=== PATIENT | male | born 1950 | race Caucasian/White ===

== ENCOUNTER 2016-04-10 13:49 | Observation (INO) | payer OTHER ==
--- NOTE | ~2016-04-10 | DS ---
Discharge Summary [facility] [address] [place]. [address] NAME: MERY REED : 52 STATUS : DIS Georgi PAT#: [id number] AGE: 66 ADM/REG DATE : 04/10/16 MR#: [id number] REPORT SERV DATE: 04/12/16 DICTATED BY: TOÑO YU DATE: 04/11/16 REPORT STATUS : Draft TRANSCRIBED BY: MODL DATE: 04/11/16 ADMISSION DATE: 04/10/2016 DISCHARGE DATE: 04/11/2016 HISTORY OF PRESENT ILLNESS: Mr. Reed is a 66-year-old male with a history of hypertension, status post anterior colonic resection for persistent diverticulosis with phlegmon, who presented to the hospital with a complaint of lightheadedness and dizziness. For further details, please refer to H and P dictated by Dr. Yu on 04/10/2016. HOSPITAL COURSE: Upon presentation to the emergency room, the patient was diagnosed with volume depletion, and admitted under Hospitalist Service for observation overnight. The patient remained hemodynamically stable with complete resolution of his presenting symptom. The patient is hemodynamically stable. The patient has been counseled to intake adequate amount of fluid daily approximately 1.5 L to avoid volume depletion. Given his hemodynamic stability with resolution of his symptoms, the patient will be discharged home today. Plan has been discussed with the patient, who voices understanding and is agreeable with that plan. DISCHARGE MEDICATIONS: The patient's home medications were all continued with the exception that hydrochlorothiazide was added for high blood pressure. His home meds include aspirin 81 mg p.o. daily, nicotine patch 14 mg patch one patch topical daily, tamsulosin 0.4 mg p.o. at bedtime, Flagyl 500 mg p.o. q.8 hours, hydrochlorothiazide 25 mg p.o. daily. IMAGING: The patient the patient had a brain CT scan and also CT of the abdomen and pelvis, all without contrast. No significant findings were noted on these exams. DISCHARGE EXAM: GENERAL: The patient is sitting in bed, in no acute distress. Appears stated age. HEENT: Normocephalic, atraumatic. Extraocular motors intact. Oral mucosa moist. Pupils round and reactive to light and accommodation. Extraocular motors intact. NECK: Trachea midline and symmetric. No JVD noted. No thyromegaly present. No masses palpated. CHEST: Nontender to palpation. No scars noted. CARDIOVASCULAR: Regular rate and rhythm. S1, S2. No murmurs, rubs, or gallops. LUNGS: Clear to auscultation bilaterally. No wheezes, rhonchi, or rales. ABDOMEN: Positive bowel sounds. Nontender. Nondistended. Colostomy site noted draining liquid fecal matter. Tissue appears healthy. Area looks clean. EXTREMITIES: No cyanosis, clubbing, or edema. NEURO: Alert and oriented x3. No focal deficits appreciated. DISPOSITION: The patient will be discharged home to follow up with primary care physician in one to two weeks. ACTIVITY: As tolerated. DIET: Regular low-salt diet. Discharge Summary [address] [address] NAME: MERY REED : 52 STATUS : DIS Georgi PAT#: [id number] AGE: 66 ADM/REG DATE : 04/10/16 MR#: [id number] REPORT SERV DATE: 04/12/16 DICTATED BY: TOÑO YU DATE: 04/11/16 REPORT STATUS : Draft TRANSCRIBED BY: NORA DATE: 04/11/16 Greater than 30 minutes were spent reviewing chart, coordinating care, dictating note, writing prescription, and medication reconciliation. RYDER/NORA Toño Yu MD / [id number] CC: MD Aaron Estevez D.O.
--- NOTE | ~2016-04-10 | CN ---
Consultation Report [facility] [address] [place]. [address] NAME: MERY REED : 52 STATUS : ADM Georgi PAT#: [id number] AGE: 66 ADM/REG DATE : 04/10/16 MR#: [id number] REPORT SERV DATE: 04/11/16 DICTATED BY: CANDY BURNHAM DATE: 04/11/16 REPORT STATUS : Draft TRANSCRIBED BY: MODJerald DATE: 04/11/16 CONSULTATION. DATE OF CONSULTATION: 04/11/2016 REASON FOR CONSULTATION: New ileostomy and dehydration. HISTORY OF PRESENTING ILLNESS: Mr. Reed is a 66-year-old gentleman, who underwent a low anterior resection with ileostomy on 04/03/2016, for diverticular disease. He presented on Friday, today is with dehydration and dizziness. He was sent for 2 L IV infusion and labs were checked at that time, all electrolytes were within normal range. He was then sent home and by Friday which was yesterday he felt worse and was told to go to the [facility] emergency room where he had labs, MRI of the brain, CT scan of the head, abdomen, and pelvis all of which showed no evidence of stroke and no evidence of an anastomotic leak. Please see Dr. Craig's dictation for past medical history, past surgical history, allergies, medications, social history, and family history. REVIEW OF SYSTEMS: As in HPI, otherwise negative. PHYSICAL EXAMINATION: VITAL SIGNS: Temperature 97.8, pulse 80, and blood pressure 141/70. GENERAL: Alert, white male. In no acute distress. HEENT: Normocephalic and atraumatic. EOMI. PERRLA. Oropharynx is clear. NECK: Supple. No lymphadenopathy. LUNGS: Clear to auscultation bilaterally. HEART: Regular rate and rhythm. ABDOMEN: Soft. Wide incisions are healing well. The ileostomy is pink, viable, and functional. EXTREMITIES: Moves all extremities well. NEUROLOGIC: Cranial nerves 2 through 12 intact. SKIN: No rashes. LABORATORY DATA: White count 8.1; H and H 11.9 and 35.3, and platelets of 382. Electrolytes within normal range. Creatinine is 0.87. UA is negative. MRI of the head is negative. CT scan of the abdomen and pelvis is negative. ASSESSMENT: Postoperative dehydration, secondary to poor p.o. intake. PLAN: At this point, the ileostomy output needs to be recorded on a 24 hours basis. The goal is less than a 1000 mL in 24 hours to avoid dehydration. I would resume home health on discharge for ileostomy care and his goal p.o. intake is 2 L in 24 hours. I would like to see him in the office in one week. I believe his symptoms are secondary to hypertensive crisis and I appreciate the hospitalist input and management of this. Consultation Report [facility] [id number] [address] NAME: MERY REED : 52 STATUS : ADM Georgi PAT#: [id number] AGE: 66 ADM/REG DATE : 04/10/16 MR#: [id number] REPORT SERV DATE: 04/11/16 DICTATED BY: CANDY BURNHAM DATE: 04/11/16 REPORT STATUS : Draft TRANSCRIBED BY: NORA DATE: 04/11/16 ERASMO/NORA Candy Burnham M.D. / [id number] CC: Aaron Lowe Jr, MD Donald Hartsfield, D.O.
--- NOTE | ~2016-04-10 | HP ---
History And Physical [facility] [id number] [place]. [address] NAME: MERY REED : 52 STATUS : ADM Georgi PAT#: [id number] AGE: 66 ADM/REG DATE : 04/10/16 MR#: [id number] REPORT SERV DATE: 04/10/16 DICTATED BY: TOÑO YU DATE: 04/10/16 REPORT STATUS : Draft TRANSCRIBED BY: MODJerald DATE: 04/10/16 DATE OF ADMISSION: 04/10/2016 CHIEF COMPLAINTS: Lightheadedness and dizziness. HISTORY OF PRESENTING ILLNESS: The patient is a 66-year-old male with a history of persistent diverticulitis status post anterior resection with ileostomy, who was recently discharged from the hospital. He is status post low anterior resection for persistent diverticulitis with phlegmon, who presents to the hospital with complaints of lightheadedness and dizziness. Thus the patient states that, he is status post his surgery and upon his return home the patient has had poor appetite with decreased p.o. intake. He states that he awoke this morning he felt very jittery and noted that he was diaphoretic. The patient states that his symptoms progressively improved with resolution of his diaphoresis; however, he still was feeling on well so he decided to present to the emergency room. Upon presentation to the emergency room, the patient was given 1 L IV fluids with resolution of his symptoms. Preliminary workup in the emergency room included MRI of the brain, which came back negative, and abdominal CT, which was also negative. The patient is being admitted under Hospitalist Service for observation. At the time of my evaluation, the patient was status post IV fluid resuscitation, and stated his symptoms had completely resolved. He also corroborated the above story. He reports that his lightheadedness and dizziness has resolved. He denies any chest pain, palpitations, lightheadedness, dizziness, any blurry vision. He denies any chest pain, shortness of breath, or palpitations. He denies any abdominal pain or nausea or vomiting. He denies any fever or chills. He also denies any sick contacts. Review of systems as noted in the HPI. All other systems were negative. PAST MEDICAL HISTORY: Significant for diverticulitis with phlegmon. The patient is status post anterior resection. SURGICAL HISTORY: Anterior resection of the large bowel with ileostomy, also stent placement in the right lower extremity. FAMILY HISTORY: Significant for diabetes, hypertension, and stroke. SOCIAL HISTORY: The patient reports that he uses 1 pack of cigarettes a day. Also states that he is a social drinker. Denies any illicit drug use. The patient is currently and lives at home with his . MEDICATIONS: Include: 1. Acetaminophen 1000 mg p.o. q.4 hours p.r.n. 2. Aspirin 81 mg p.o. daily. 3. [place] 1-2 tabs q.4 hours p.r.n. 4. Flagyl 500 mg p.o. q.8 hours. 5. Multivitamin. 6. Nicotine transdermal patch. 7. Zofran 4 mg p.o. q.4 hours p.r.n. History And Physical [address] [address] NAME: MERY REED : 52 STATUS : ADM Georgi PAT#: [id number] AGE: 66 ADM/REG DATE : 04/10/16 MR#: [id number] REPORT SERV DATE: 04/10/16 DICTATED BY: TOÑO YU DATE: 04/10/16 REPORT STATUS : Draft TRANSCRIBED BY: NORA DATE: 04/10/16 8. Tamsulosin 0.4 mg p.o. at bedtime. PHYSICAL EXAMINATION: VITAL SIGNS: On presentation, blood pressure 136/71, pulse 99, respirations 16, O2 saturation 100%, temperature 36.78 degrees Celsius, 98.2 degrees Fahrenheit. GENERAL: The patient lying in bed, appears stated age. Speaking in full sentences age, in no acute distress. HEENT: Normocephalic atraumatic. Extraocular motors intact. Pupils round and reactive to light and accommodation. Anicteric sclerae. No conjunctiva pallor noted. NECK: Trachea midline and symmetric. No JVD noted. No thyromegaly present no lymphadenopathy palpated. CHEST: No scars noted. Nontender to palpation. CARDIOVASCULAR: Regular rate and rhythm S1, S2. No murmurs, rubs, or gallops. LUNGS: Clear to auscultation bilaterally. No wheezes, rhonchi, or rales. ABDOMEN: Positive bowel sounds, nontender, and nondistended, flat and soft. EXTREMITIES: No cyanosis, no clubbing, no edema. NEUROLOGIC: Alert and oriented x3. No focal deficits appreciated. LABORATORY DATA: WBC 10.8, hemoglobin 13.5, hematocrit 39.8, platelets 411, sodium 138, potassium 4.3, chloride 101, bicarb 31, BUN 11, creatinine 0.89, glucose 96. IMAGING: CT brain without contrast. Impression negative noncontrast head CT. CT abdomen and pelvis without contrast. Impression small and large bowel unremarkable. Postoperative changes from partial colectomy for diverticulitis. Ostomy site in the right upper quadrant. ASSESSMENT AND PLAN: 1. Volume depletion. The patient status post partial colectomy has had decreased p.o. intake. Reported that he had not had any p.o. intake this morning, complained of jitteriness and diaphoresis. On presentation, the patient was noted to be tachycardic. In the emergency room, was given IV normal saline 1 L with complete resolution of his presenting symptoms. Etiology symptoms most likely volume depletion. We will admit the patient for 24-hour observation, if he remains hemodynamically stable we can likely be discharged in the morning. 2. Elevated blood pressure on presentation, systolic blood pressure was 139. The patient states that he is on no antihypertensives; however, in the emergency room blood pressure progressively increased to a systolic of greater than 170. Plan, the patient likely has hypertension we will start the patient on hydrochlorothiazide 25 mg p.o. daily and monitor. 3. Persistent diverticulitis with phlegmon status post low anterior resection with ileostomy. The patient currently stable. We will continue to monitor. RYDER/NORA Toño Yu MD History And Physical [address] [address] NAME: MERY REED : 52 STATUS : ADM Georgi PAT#: [id number] AGE: 66 ADM/REG DATE : 04/10/16 MR#: [id number] REPORT SERV DATE: 04/10/16 DICTATED BY: TOÑO YU DATE: 04/10/16 REPORT STATUS : Draft TRANSCRIBED BY: NORA DATE: 04/10/16 / [id number] CC: Aaron Lowe Jr, MD Donald Hartsfield, D.O.
[2016-04-10 11:27] LABS: BASOPHILS 0.4 %; BASOPHILS ABSOLUTE 0.04 10/3/uL (0.0-0.16); EOSINOPHILS 2.1 %; EOSINOPHILS ABSOLUTE 0.23 10/3/uL (0.0-0.53); HEMOGLOBIN 13.5 g/dL (13.6-17.8); IMMATURE GRANULOCYTES 0.5 %; IMMATURE GRANULOCYTES ABSOLUTE 0.05 10/3/uL (0.0-0.11); LYMPHOCYTES 26.2 %; LYMPHOCYTES ABSOLUTE 2.84 10/3/uL (0.67-4.30); MEAN CORPUS HGB CONC 33.9 g/dL (32.0-36.0); MEAN CORPUSCULAR HEMOGLOB 30.8 pg (26.0-34.0); MEAN CORPUSCULAR VOLUME 90.7 fL (80-100); MEAN PLATELET VOLUME 8.9 fL (9.2-13.0); MONOCYTES 6.5 %; MONOCYTES ABSOLUTE 0.71 10/3/uL (0.21-1.20); NEUTROPHILS 64.3 %; NEUTROPHILS ABSOLUTE 6.97 10/3/uL (2.02-8.40); PLATELET COUNT 411 10/3/uL (150-400); RBC DISTRIBUTION WIDTH 15.4 % (12.0-16.0); RED CELL COUNT 4.39 10/6/uL (4.7-6.1)
[2016-04-10 11:28] LABS: ER CBC TAT 0 Hrs 07 Mins; HEMATOCRIT 39.8 % (40.0-51.0); MANUAL DIFF NO %; WHITE BLOOD CELLS 10.8 10/3/uL (4.5-10.5)
[2016-04-10 11:40] LABS: A/G RATIO 0.8 (0.7-1.9); ALBUMIN 3.8 G/DL (3.5-5.0); ALKALINE PHOSPHATASE 68 U/L (45-117); CALCIUM, SERUM 9.9 MG/DL (8.5-10.4); CHLORIDE, SERUM 101 MMOL/L (96-112); CO2 (CARBON DIOXIDE) 31 MMOL/L (24-34); CREATININE 0.89 MG/DL (0.70-1.30); GFR AFRICAN AMERICAN 104 ML/MIN (>=60); GFR NON AFRICAN AMERICAN 90 ML/MIN (>=60); GLOBULIN 4.5 G/DL (2.5-4.1); POTASSIUM, SERUM 4.3 MMOL/L (3.5-5.3); SGOT(AST) 32 U/L (5-40); SGPT(ALT) 44 U/L (5-65); SODIUM, SERUM 138 MMOL/L (135-148); TOTAL BILIRUBIN 0.4 MG/DL (0-1.2); TOTAL PROTEIN 8.3 G/DL (6.0-8.5)
[2016-04-10 11:41] LABS: BUN (BLOOD UREA NITROGEN) 11 MG/DL (6-23); GLUCOSE, SERUM 96 MG/DL (60-99)
[~2016-04-10 13:49] MED LIST: ACET500CAP PO; ASAB PO; CAT2 PO; CIP5 PO; FIBERCON; FLAG500TAB PO; FLOMAX4 PO; LIPITOR40 PO; MAX25 PO; NICODERM C21 MG/241 TOP; NORCO1 TA2 PO; PRIN20 PO
[2016-04-10 15:30] LABS: ASCORBIC ACID (UR NOT ORDER) NEG (NEG); BILIRUBIN, URINE NEGATIVE (NEG); KETONE, URINE NEGATIVE (NEG); LEUKOCYTE ESTERASE(NOT OR NEG (NEG); NITRITE (URINE) NEG (NEG); WBC (NOT ORDERED) (RFLEX) < 1 (0-5)
[2016-04-10] MEDS ORDERED: FLOMAX4 PO (16:20)
[2016-04-10] MEDS ORDERED: ZOFRAN4 PO (16:20)
[2016-04-10] MEDS ORDERED: ASAB PO (16:20)
[2016-04-10] MEDS ORDERED: NORCO1 TA2 PO (16:21)
[2016-04-10] MEDS ORDERED: FLAG500TAB PO (16:22)
[2016-04-10] MEDS ORDERED: ACET500CAP PO (16:22)
[2016-04-10] MEDS ORDERED: HABIT14 TOP (16:22)
[2016-04-10] MEDS ORDERED: FIBER PO (16:23)
[2016-04-10] MEDS ORDERED: CENTRUM PO (16:23)
[2016-04-10] MEDS ORDERED: OCEAN NAS (16:24)
[2016-04-10] MEDS ORDERED: MIRALAX POWDER1 PKT PO (16:26)
[2016-04-11 06:09] LABS: BASOPHILS 0.4 %; BASOPHILS ABSOLUTE 0.03 10/3/uL (0.0-0.16); EOSINOPHILS 2.7 %; EOSINOPHILS ABSOLUTE 0.22 10/3/uL (0.0-0.53); HEMOGLOBIN 11.9 g/dL (13.6-17.8); IMMATURE GRANULOCYTES 0.2 %; IMMATURE GRANULOCYTES ABSOLUTE 0.02 10/3/uL (0.0-0.11); LYMPHOCYTES 35.5 %; LYMPHOCYTES ABSOLUTE 2.88 10/3/uL (0.67-4.30); MEAN CORPUS HGB CONC 33.7 g/dL (32.0-36.0); MEAN CORPUSCULAR HEMOGLOB 29.8 pg (26.0-34.0); MEAN CORPUSCULAR VOLUME 88.3 fL (80-100); MONOCYTES 8.6 %; NEUTROPHILS 52.6 %; NEUTROPHILS ABSOLUTE 4.27 10/3/uL (2.02-8.40); PLATELET COUNT 384 10/3/uL (150-400); RBC DISTRIBUTION WIDTH 15.8 % (12.0-16.0); WHITE BLOOD CELLS 8.1 10/3/uL (4.5-10.5)
[2016-04-11 06:18] LABS: A/G RATIO 0.8 (0.7-1.9); ALBUMIN 3.2 G/DL (3.5-5.0); ALKALINE PHOSPHATASE 60 U/L (45-117); BUN (BLOOD UREA NITROGEN) 16 MG/DL (6-23); CHLORIDE, SERUM 103 MMOL/L (96-112); CO2 (CARBON DIOXIDE) 28 MMOL/L (24-34); CREATININE 0.87 MG/DL (0.70-1.30); GFR AFRICAN AMERICAN 105 ML/MIN (>=60); GFR NON AFRICAN AMERICAN 91 ML/MIN (>=60); GLUCOSE, SERUM 116 MG/DL (60-99); HEMATOCRIT 35.3 % (40.0-51.0); MANUAL DIFF NO %; SGOT(AST) 24 U/L (5-40); SGPT(ALT) 35 U/L (5-65); SODIUM, SERUM 141 MMOL/L (135-148); TOTAL BILIRUBIN 0.4 MG/DL (0-1.2); TOTAL PROTEIN 7.2 G/DL (6.0-8.5)
[2016-04-11] MEDS ORDERED: HYDROCHLOROT25 MG PO (11:19)
== END 2016-04-11 12:00 | disposition home or self-care (01) ==
LOC: ER 13:49 → CDU1 16:34
PROVIDERS: Emergency Medicine; Internal Medicine
DX: E86.0 Dehydration (principal); E86.9 Volume depletion, unspecified; H91.90 Unspecified hearing loss, unspecified ear; F17.210 Nicotine dependence, cigarettes, uncomplicated; M10.9 Gout, unspecified; Z98.890 Other specified postprocedural states; Z83.3 Family history of diabetes mellitus; Z82.3 Family history of stroke; Z82.49 Family history of ischemic heart disease and other diseases of the circulatory system; Z79.82 Long term (current) use of aspirin; Z79.891 Long term (current) use of opiate analgesic; Z79.899 Other long term (current) drug therapy
CPT/HCPCS: 70450; 74176; 80053; 81001; 83690; 84484; 85025; 93005; 96372; 96374; 96375; 96376; 99285; A9270-GY; G0378; J0360; J2405

== ENCOUNTER 2016-06-06 05:54 | Inpatient (IN) | payer OTHER ==
[2016-06-03 11:12] LABS: HEMOGLOBIN 13.3 g/dL (13.6-17.8)
[2016-06-03 11:15] LABS: HEMATOCRIT 39.1 % (40.0-51.0)
[2016-06-03 11:27] LABS: CALCIUM, SERUM 9.8 MG/DL (8.5-10.4); CHLORIDE, SERUM 105 MMOL/L (96-112); CO2 (CARBON DIOXIDE) 27 MMOL/L (24-34); CREATININE 0.94 MG/DL (0.70-1.30); GFR AFRICAN AMERICAN 98 ML/MIN (>=60); GFR NON AFRICAN AMERICAN 85 ML/MIN (>=60); GLUCOSE, SERUM 95 MG/DL (60-99); POTASSIUM, SERUM 4.7 MMOL/L (3.5-5.3); SODIUM, SERUM 141 MMOL/L (135-148)
[2016-06-03 11:28] LABS: BUN (BLOOD UREA NITROGEN) 12 MG/DL (6-23)
--- NOTE | ~2016-06-06 | OP ---
Record Of Operation [facility] [address] [place]. [address] NAME: MERY REED : 52 STATUS : ADM IN PAT#: [id number] AGE: 66 ADM/REG DATE : 06/06/16 MR#: [id number] REPORT SERV DATE: 06/06/16 DICTATED BY: CANDY BURNHAM DATE: 06/06/16 REPORT STATUS : Draft TRANSCRIBED BY: MODJerald DATE: 06/06/16 DATE OF PROCEDURE: PREPROCEDURE DIAGNOSIS: Undesired ileostomy. POSTPROCEDURE DIAGNOSIS: Undesired ileostomy. PROCEDURE: Ileostomy reversal. GLOVE FORMER: Alyssa. PROCEDURE IN DETAIL: The patient was taken to the operating room, induced under general anesthesia, the ileostomy was closed with a pursestring suture and an elliptical incision was made with a scalpel blade. This was carried down to the fascia using cautery and the stoma was mobilized circumferentially from the fascial edges. Once this was accomplished, blue towels were placed on the abdomen. The two limbs of the ileostomy were transected from the spur making a window in the mesentery and transecting using a blue load of the 75 JONO. The intervening mesentery was taken using Tigist clamps and 3-0 Vicryl ties. The spur was passed off the table and sent to pathology. Then, the new anastomosis was created by making an enterotomy on the antimesenteric corner of each limb. A limb of the 75 JONO was placed down either side, firing on the antimesenteric border. The stapler, once it was opened, the blades were scissored in order to inspect the staple line where there was good hemostasis, and then the new enterotomy was closed taking care not to juxtapose staple lines and using a TX 60 stapler. The remnant was removed. All intersecting staple lines were reinforced using 3-0 Vicryl suture and a crotch stitch was placed. The mesenteric defect was too small to close. All dirty instruments and gloves were changed at this time. The anastomosis was placed into the abdominal cavity. The fascia was closed with PDS proximal to middle, distal to middle, tying in the center. The Marcy's layer was closed with a running 3-0 Vicryl suture. The wound was irrigated and the skin was closed in 1 cm gaps with 3-0 Vicryl interrupted sutures. Telfa marc dipped in Betadine paint were placed in the gaps followed by two 4x4s, and tape. He tolerated the procedure well. ERASMO/NORA Candy Burnham M.D. / [id number] CC: Maribell Chi D.O.
--- NOTE | ~2016-06-06 | HP ---
History And Physical [facility] [place] [id number] [facility] [place]. [address] NAME: MERY REED : 52 STATUS : ADM IN [facility]#: [id number] AGE: 66 ADM/REG DATE : 06/06/16 MR#: [id number] REPORT SERV DATE: 06/06/16 DICTATED BY: CANDY NAIR DATE: 06/06/16 REPORT STATUS : Draft TRANSCRIBED BY: NORA DATE: 06/06/16 DATE OF ADMISSION: 06/06/2016 REASON FOR ADMISSION: Ileostomy reversal. PAST MEDICAL HISTORY: Significant for diverticulitis and status post low anterior resection with ileostomy on 04/23/2016. PAST SURGICAL HISTORY: Stent placement to the right leg x2. SOCIAL HISTORY: He smokes a pack of cigarettes a day. Drinks beer daily and is . FAMILY HISTORY: Positive for diabetes, hypertension, and stroke. MEDICATIONS: Ambien, Zofran, Metamucil, aspirin. REVIEW OF SYSTEMS: As stated in the HPI, otherwise negative. PHYSICAL EXAMINATION: VITAL SIGNS: 140/78. GENERAL: Alert white male, in no acute distress. HEENT: Normocephalic, atraumatic. EOMI. PERRLA: Oropharynx is clear. NECK: Supple. No lymphadenopathy. LUNGS: Clear to auscultation bilaterally. HEART: Regular rate and rhythm. ABDOMEN: Soft, flat with the ileostomy in the right lower quadrant. NEURO: Moves all extremities well. Cranial nerves 2 through 12 intact. No rashes. ASSESSMENT AND PLAN: A 66-year-old male with undesired ileostomy. Plan is for ileostomy reversal. I have discussed risks, benefits, and alternatives. He understands and is willing to proceed. ERASMO/NORA Candy Nair M.D. / [id number] CC: Candy Nair M.D.
[~2016-06-06 05:54] MED LIST changes: +CENTRUM PO; +FIBER PO; +HABIT14 TOP; +HYDROCHLOROT25 MG PO; +MIRALAX POWDER1 PKT PO; +OCEAN NAS; +ZOFRAN4 PO
[2016-06-06 10:18] LABS: HEMATOCRIT 35.5 % (40.0-51.0); HEMOGLOBIN 12.3 g/dL (13.6-17.8)
[2016-06-07 05:08] LABS: BASOPHILS 0.1 %; BASOPHILS ABSOLUTE 0.01 10/3/uL (0.0-0.16); EOSINOPHILS 0 %; HEMATOCRIT 37.8 % (40.0-51.0); HEMOGLOBIN 13.1 g/dL (13.6-17.8); IMMATURE GRANULOCYTES 0.3 %; IMMATURE GRANULOCYTES ABSOLUTE 0.05 10/3/uL (0.0-0.11); MEAN CORPUS HGB CONC 34.7 g/dL (32.0-36.0); MEAN CORPUSCULAR HEMOGLOB 32.2 pg (26.0-34.0); MEAN PLATELET VOLUME 8.8 fL (9.2-13.0); MONOCYTES 5.9 %; MONOCYTES ABSOLUTE 1.11 10/3/uL (0.21-1.20); NEUTROPHILS 83.7 %; PLATELET COUNT 307 10/3/uL (150-400); RBC DISTRIBUTION WIDTH 14.5 % (12.0-16.0); RED CELL COUNT 4.07 10/6/uL (4.7-6.1)
[2016-06-07 05:10] LABS: BUN (BLOOD UREA NITROGEN) 14 MG/DL (6-23); CHLORIDE, SERUM 105 MMOL/L (96-112); CO2 (CARBON DIOXIDE) 26 MMOL/L (24-34); CREATININE 1.08 MG/DL (0.70-1.30); GFR AFRICAN AMERICAN 83 ML/MIN (>=60); GFR NON AFRICAN AMERICAN 72 ML/MIN (>=60); POTASSIUM, SERUM 4.3 MMOL/L (3.5-5.3); SODIUM, SERUM 140 MMOL/L (135-148)
[2016-06-07 05:11] LABS: CALCIUM, SERUM 8.8 MG/DL (8.5-10.4); GLUCOSE, SERUM 141 MG/DL (60-99)
[2016-06-07 05:20] LABS: MANUAL DIFF NO %; MEAN CORPUSCULAR VOLUME 92.9 fL (80-100)
[2016-06-08 07:24] LABS: BASOPHILS 0.3 %; BASOPHILS ABSOLUTE 0.03 10/3/uL (0.0-0.16); EOSINOPHILS ABSOLUTE 0.12 10/3/uL (0.0-0.53); HEMATOCRIT 34.2 % (40.0-51.0); HEMOGLOBIN 11.6 g/dL (13.6-17.8); IMMATURE GRANULOCYTES 0.3 %; IMMATURE GRANULOCYTES ABSOLUTE 0.04 10/3/uL (0.0-0.11); LYMPHOCYTES 27.4 %; LYMPHOCYTES ABSOLUTE 3.28 10/3/uL (0.67-4.30); MEAN CORPUS HGB CONC 33.9 g/dL (32.0-36.0); MEAN CORPUSCULAR HEMOGLOB 32.2 pg (26.0-34.0); MEAN PLATELET VOLUME 8.6 fL (9.2-13.0); MONOCYTES 8.9 %; MONOCYTES ABSOLUTE 1.07 10/3/uL (0.21-1.20); NEUTROPHILS 62.1 %; NEUTROPHILS ABSOLUTE 7.44 10/3/uL (2.02-8.40); PLATELET COUNT 280 10/3/uL (150-400)
[2016-06-08 07:25] LABS: MANUAL DIFF NO %
[2016-06-08 16:46] LABS: HEMOGLOBIN 12.6 g/dL (13.6-17.8)
[2016-06-08] MEDS ORDERED: NORCO1 TA2 PO (17:57)
== END 2016-06-08 18:42 | disposition home or self-care (01) | DRG 331 ==
LOC: SDC/OF 05:54 → 5SO 11:19
PROVIDERS: Surgery
PROC: 0DBB0ZZ Excision of Ileum, Open Approach (ICD-10-PCS; principal; 2016-06-06 07:30)
DX: Z43.2 Encounter for attention to ileostomy (principal); F17.210 Nicotine dependence, cigarettes, uncomplicated; Z88.1 Allergy status to other antibiotic agents; Z79.899 Other long term (current) drug therapy; Z79.82 Long term (current) use of aspirin; Z90.49 Acquired absence of other specified parts of digestive tract; Z98.890 Other specified postprocedural states; Z83.3 Family history of diabetes mellitus; Z82.49 Family history of ischemic heart disease and other diseases of the circulatory system; Z82.3 Family history of stroke; I73.9 Peripheral vascular disease, unspecified; Z95.828 Presence of other vascular implants and grafts
CPT/HCPCS: 80048; 85014; 85018; 85025; 88304; 93005; A9270-GY; C9113; J0690; J1580; J1885; J2250; J2270; J2405; J2710; J2795; J3010